=== PATIENT | male | born 1985 | race African-American/Black ===

== ENCOUNTER 2017-08-24 22:19 | Observation (INO) | payer MEDICARE ==
[2017-08-24] MEDS ORDERED: HYDROMORPHONE HCL INJ/PF 2 MG/ML AMPULE IV PRN (23:48)
--- NOTE | 2017-08-25 00:18 | ER Document Report ---
ED General - General Chief Complaint: Sickle Cell Crisis Stated Complaint: PAIN Time Seen by Provider: 08/24/17 23:48 Notes: Patient is a 32-year-old male with a past medical history of sickle cell anemia hemoglobin SC who presents with an acute pain crisis. He describes pain as being in his bilateral hips and thighs bilaterally as well as into his low back. He reports that this is very typical for sickle cell pain crisis. He states the pancreas started earlier today and has been a constant, throbbing, moderate to severe pain. He took oxycodone 15 mg tablet at home without any relief of his pain. He denies any associated fever, nausea, vomiting, shortness of breath or chest pain. He denies any history of acute chest syndrome in the past. He has not seen his policy and planning manager regarding today's concerns although he states he did inform him that he was coming to the hospital today. TRAVEL OUTSIDE OF THE [place] IN LAST 30 DAYS: No - Related Data Allergies/Adverse Reactions: No Known Allergies Allergy (Unverified 08/25/17 00:17) Past Medical History - General Information source: Patient - Social History Smoking Status: Never Smoker Chew tobacco use (# tins/day): No Frequency of alcohol use: None Drug Abuse: None Lives with: Friend Family History: Reviewed & Not Pertinent Patient has suicidal ideation: No Patient has homicidal ideation: No Renal/ Medical History: Denies: Hx Peritoneal Dialysis Past Surgical History: Reports: Hx Cholecystectomy Review of Systems - Review of Systems Notes: Constitutional: Negative for fever. HENT: Negative for sore throat. Eyes: Negative for visual changes. Cardiovascular: Negative for chest pain. Respiratory: Negative for shortness of breath. Gastrointestinal: Negative for abdominal pain, vomiting or diarrhea. Genitourinary: Negative for dysuria. Musculoskeletal: Positive for back and hip pain Skin: Negative for rash. Neurological: Negative for headaches, weakness or numbness. 10 point ROS negative except as marked above and in HPI. Physical Exam - Vital signs Vitals: Temp Pulse Resp BP Pulse Ox 98.5 F 98 18 145/93 H 100 08/24/17 22:26 08/24/17 22:26 08/24/17 22:26 08/24/17 22:26 08/24/17 22:26 Interpretation: Normal Notes: PHYSICAL EXAMINATION: GENERAL: Well-appearing, well-nourished and in no acute distress. HEAD: Atraumatic, normocephalic. EYES: Pupils equal round and reactive to light, extraocular movements intact, sclera anicteric, conjunctiva are normal. ENT: nares patent, oropharynx clear without exudates. Moist mucous membranes. NECK: Normal range of motion, supple without lymphadenopathy LUNGS: Breath sounds clear to auscultation bilaterally and equal. No wheezes rales or rhonchi. HEART: Regular rate and rhythm without murmurs ABDOMEN: Soft, nontender, normoactive bowel sounds. No guarding, no rebound. No masses appreciated. EXTREMITIES: Normal range of motion, no pitting or edema. No cyanosis. NEUROLOGICAL: No focal neurological deficits. Moves all extremities spontaneously and on command. PSYCH: Normal mood, normal affect. SKIN: Warm, Dry, normal turgor, no rashes or lesions noted. Course - Re-evaluation Re-evalutation: 08/25/17 00:17 Presentation is most consistent with an uncomplicated sickle cell pain crisis. Patient has no evidence of an aplastic crisis on labs. Clinical history and vitals are not consistent with acute chest syndrome and patient has no history of this diagnosis. Vitals have remained within normal limits here in the emergency department. I have been unable to adequately control the patient's pain with IV analgesia and will hospitalize him at his request. - Vital Signs Vital signs: Temp Pulse Resp BP Pulse Ox 98.5 F 91 16 144/91 H 99 08/25/17 02:30 08/25/17 02:30 08/25/17 02:30 08/25/17 02:30 08/25/17 02:30 - Laboratory Result Diagrams: 08/25/17 00:02 08/25/17 00:02 Laboratory results interpreted by me: 08/25/17 00:02 RBC 4.25 L Hgb 12.8 L Hct 36.7 L RDW 15.2 H Seg Neutrophils % 41.8 L Eosinophils % 6.5 H Discharge - Discharge Clinical Impression: Sickle cell pain crisis Condition: Fair Disposition: ADMITTED OBSERVATION Admitting Provider: Peewee Arias Gopal Unit Admitted: Medical Floor Additional Instructions: You were seen today for sickle cell pain crisis. Please follow-up with your policy and planning manager. Returning to the ED if you have worsening pain, fever greater than 100.4, shortness of breath, persistent vomiting, or any other symptoms that are concerning to you.
[2017-08-25] MEDS: HYDROMORPHONE HCL INJ/PF 2 MG/ML AMPULE IV PRN ×6 (00:20→21:07)
[2017-08-25 00:30] LABS: APPEARANCE,URINE CLEAR; BILIRUBIN,URINE NEGATIVE (NEGATIVE); GLUCOSE, URINE NEGATIVE (NEGATIVE); KETONES,URINE NEGATIVE (NEGATIVE); LEUKOCYTE ESTERASE,URINE NEGATIVE (NEGATIVE); NITRITE,URINE NEGATIVE (NEGATIVE); PROTEIN,URINE NEGATIVE (NEGATIVE); URINE SPECIFIC GRAVITY 1.009; UROBILINOGEN,URINE NEGATIVE mg/dL (<2.0)
[2017-08-25 00:35] LABS: ABSOLUTE BASOPHILS # (AUTO) 0.2 10^3/uL (0.0-0.2); ABSOLUTE EOSINOPHILS # (AUTO) 0.6 10^3/uL (0.0-0.6); ABSOLUTE LYMPHOCYTES (AUTO) 3.8 10^3/uL (0.5-4.7); ABSOLUTE MONOCYTES (AUTO) 1.1 10^3/uL (0.1-1.4); ABSOLUTE NEUT (AUTO) 4.1 10^3/uL (1.7-8.2); BASOPHILS % (AUTO) 1.7 % (0-2); EOSINOPHILS % (AUTO) 6.5 % (0-6); HEMATOCRIT 36.7 % (37.9-51.0); HEMOGLOBIN 12.8 g/dL (13.5-17.0); HGB HCT DIFFERENCE 1.7; LYMPHOCYTES % (AUTO) 38.9 % (13-45); MEAN CORPUSCULAR HEMOGLOBIN 30.2 pg (27.0-33.4); MEAN CORPUSCULAR VOLUME 86 fl (80-97); MONOCYTES % (AUTO) 11.1 % (3-13); RED BLOOD COUNT 4.25 10^6/uL (4.35-5.55); RED CELL DISTRIBUTION WIDTH 15.2 % (11.5-14.0); SEGMENTED NEUTROPHILS % (AUTO) 41.8 % (42-78); WHITE BLOOD COUNT 9.9 10^3/uL (4.0-10.5)
[2017-08-25 00:47] LABS: ANION GAP 9 (5-19); BLOOD UREA NITROGEN 9 mg/dL (7-20); CALCIUM 9.8 mg/dL (8.4-10.2); CARBON DIOXIDE 27 mmol/L (22-30); CHLORIDE 107 mmol/L (98-107); CREATININE RESULT 0.93 mg/dL (0.52-1.25); GLUCOSE 86 mg/dL (75-110); POTASSIUM 4.2 mmol/L (3.6-5.0); SODIUM 143.3 mmol/L (137-145)
[2017-08-25] MEDS ORDERED: ONDANSETRON HCL INJ/PF 4 MG/2 ML SDV IV ONE (00:52)
[2017-08-25] MEDS ORDERED: DIPHENHYDRAMINE HCL 50 MG/ML VIAL IV ONE ×2 (00:53→03:10)
[2017-08-25] MEDS ORDERED: HYDROMORPHONE HCL INJ/PF 2 MG/ML AMPULE IV ONE (03:10)
[2017-08-25] MEDS ORDERED: PROMETHAZINE HCL INJ 25 MG/1 ML VIAL IV ONE (03:10)
[2017-08-25] MEDS ORDERED: IPRATROPIUM/ALBUTEROL 0.5-2.5 MG/3 ML AMPUL NEB PRN (04:10)
[2017-08-25] MEDS ORDERED: ACETAMINOPHEN 325 MG TABLET PO PRN (04:10)
[2017-08-25] MEDS ORDERED: ONDANSETRON HCL INJ/PF 4 MG/2 ML SDV IV PRN (04:10)
[2017-08-25] MEDS ORDERED: MAG HYDROX/AL HYDROX/SIMETH SUSP 30 ML UDCUP PO PRN (04:10)
[2017-08-25] MEDS ORDERED: KETOROLAC TROMETHAMINE INJ/PF 30 MG/1 ML SDV IV PRN (04:13)
[2017-08-25] MEDS ORDERED: HYDROMORPHONE HCL INJ/PF 2 MG/ML AMPULE IV PRN ×2 (04:13→16:03)
[2017-08-25 04:51] LABS: URINE BARBITURATES SCREEN NEGATIVE; URINE METHADONE SCREEN NEGATIVE; URINE OPIATES LOW NEGATIVE; URINE PHENCYCLIDINE SCREEN NEGATIVE
[2017-08-25 06:07] LABS: ABSOLUTE BASOPHILS # (AUTO) 0.2 10^3/uL (0.0-0.2); ABSOLUTE EOSINOPHILS # (AUTO) 0.5 10^3/uL (0.0-0.6); ABSOLUTE LYMPHOCYTES (AUTO) 3.6 10^3/uL (0.5-4.7); ABSOLUTE MONOCYTES (AUTO) 0.9 10^3/uL (0.1-1.4); ABSOLUTE NEUT (AUTO) 3.3 10^3/uL (1.7-8.2); BASOPHILS % (AUTO) 1.9 % (0-2); EOSINOPHILS % (AUTO) 5.7 % (0-6); HEMATOCRIT 31.6 % (37.9-51.0); HEMOGLOBIN 11.2 g/dL (13.5-17.0); LYMPHOCYTES % (AUTO) 42.9 % (13-45); MEAN CORPUSCULAR HEMOGLOBIN 30.7 pg (27.0-33.4); MEAN CORPUSCULAR HGB CONC 35.4 g/dL (32.0-36.0); MEAN CORPUSCULAR VOLUME 87 fl (80-97); MONOCYTES % (AUTO) 10.7 % (3-13); RED BLOOD COUNT 3.64 10^6/uL (4.35-5.55); RED CELL DISTRIBUTION WIDTH 15.2 % (11.5-14.0); SEGMENTED NEUTROPHILS % (AUTO) 38.8 % (42-78); WHITE BLOOD COUNT 8.4 10^3/uL (4.0-10.5)
[2017-08-25 06:28] LABS: ASPARTATE AMINO TRANSFERASE 12 U/L (17-59); BILIRUBIN,DIRECT 0.2 mg/dL (0.0-0.4); BILIRUBIN,TOTAL 2.3 mg/dL (0.2-1.3); BLOOD UREA NITROGEN 7 mg/dL (7-20)
[2017-08-25 06:40] LABS: ALANINE AMINOTRANSFERASE 18 U/L (21-72); ALKALINE PHOSPHATASE 43 U/L (38-126); ANION GAP 8 (5-19); CALCIUM 7.6 mg/dL (8.4-10.2); CARBON DIOXIDE 23 mmol/L (22-30); CHLORIDE 113 mmol/L (98-107); CREATININE RESULT 0.77 mg/dL (0.52-1.25); GLUCOSE 73 mg/dL (75-110); SODIUM 143.9 mmol/L (137-145); TOTAL PROTEIN 5.6 g/dL (6.3-8.2)
[2017-08-25 06:41] LABS: POTASSIUM 3.2 mmol/L (3.6-5.0)
[2017-08-25] MEDS: PROMETHAZINE HCL 25 MG TABLET PO PRN ×2 (06:51→14:48)
[2017-08-25] MEDS: HEPARIN SOD (PORCINE) 5,000 UNIT/ML 1 ML SYRINGE SUBCUT SCH ×3 (06:51→21:07)
[2017-08-25] MEDS: NORMAL SALINE 1000 ML 1,000 ML IV SCH ×3 (06:51→14:48)
--- NOTE | 2017-08-25 07:27 | PDOC H&P ---
History of Present Illness Admission Date/PCP: 08/25/17 04:19 REGGIE DOMINIQUE MD Patient complains of: Sickle cell pain crisis History of Present Illness: HEATHER QUIJANO is a 32 year old male with a past medical history of sickle cell trait. Presents with 24 hours of hip and leg pain resembling previous sickle cell pain crisis. He denies fever chills nausea vomiting, he admits cold exposure triggering his crisis. Denies recent change in medicine and is otherwise felt well. In the emergency room he has an unremarkable workup and receives empiric management with IV fluid challenge and Dilaudid. He is referred to the hospitalist for admission Past Medical History Medical History: None Hematology: Reports: Other - Sickle cell trait Past Surgical History Past Surgical History: Reports: Cholecystectomy, Other - Port placement Social History Information Source: Patient Lives with: Friend Smoking Status: Never Smoker Drugs: None - Advance Directive Resuscitation Status: Full Code Family History Family History: CAD, Other - Sickle cell Parental Family History Reviewed: Yes Children Family History Reviewed: Yes Sibling(s) Family History Reviewed.: Yes Medication/Allergy Allergies/Adverse Reactions: No Known Allergies Allergy (Unverified 08/25/17 00:17) Review of Systems Constitutional: ABSENT: chills, fever(s), headache(s), weight gain, weight loss Eyes: ABSENT: visual disturbances Ears: ABSENT: hearing changes Cardiovascular: ABSENT: chest pain, dyspnea on exertion, edema, orthropnea, palpitations Respiratory: ABSENT: cough, hemoptysis Gastrointestinal: ABSENT: abdominal pain, constipation, diarrhea, hematemesis, hematochezia, nausea, vomiting Genitourinary: ABSENT: dysuria, hematuria Musculoskeletal: ABSENT: joint swelling Integumentary: ABSENT: rash, wounds Neurological: ABSENT: abnormal gait, abnormal speech, confusion, dizziness, focal weakness, syncope Psychiatric: ABSENT: anxiety, depression, homidical ideation, suicidal ideation Endocrine: ABSENT: cold intolerance, heat intolerance, polydipsia, polyuria Hematologic/Lymphatic: ABSENT: easy bleeding, easy bruising Physical Exam Vital Signs: Temp Pulse Resp BP Pulse Ox 98.4 F 85 16 156/100 H 100 08/25/17 06:25 08/25/17 06:25 08/25/17 06:25 08/25/17 06:25 08/25/17 06:25 Intake & Output 08/23/17 08/24/1717 11:59 11:59 11:59 Weight 61.7 kg General appearance: PRESENT: no acute distress, well-developed, well-nourished Head exam: PRESENT: atraumatic, normocephalic Eye exam: PRESENT: conjunctiva pink, EOMI, PERRLA. ABSENT: scleral icterus Ear exam: PRESENT: normal external ear exam Mouth exam: PRESENT: moist, tongue midline Neck exam: ABSENT: carotid bruit, JVD, lymphadenopathy, thyromegaly Respiratory exam: PRESENT: clear to auscultation gil. ABSENT: rales, rhonchi, wheezes Cardiovascular exam: PRESENT: RRR. ABSENT: diastolic murmur, rubs, systolic murmur Pulses: PRESENT: normal dorsalis pedis pul Vascular exam: PRESENT: normal capillary refill GI/Abdominal exam: PRESENT: normal bowel sounds, soft. ABSENT: distended, guarding, mass, organolmegaly, rebound, tenderness Rectal exam: PRESENT: deferred Extremities exam: PRESENT: full ROM. ABSENT: calf tenderness, clubbing, pedal edema Neurological exam: PRESENT: alert, awake, oriented to person, oriented to place , oriented to time, oriented to situation, CN II-XII grossly intact. ABSENT: motor sensory deficit Psychiatric exam: PRESENT: appropriate affect, normal mood. ABSENT: homicidal ideation, suicidal ideation Skin exam: PRESENT: dry, intact, warm. ABSENT: cyanosis, rash Results Laboratory Results: 08/25/17 05:55 08/25/17 05:55 08/25/17 08/25/17 05:55 05:55 WBC 8.4 RBC 3.64 L Hgb 11.2 L Hct 31.6 L MCV 87 MCH 30.7 MCHC 35.4 RDW 15.2 H Plt Count 359 Seg Neutrophils % 38.8 L Lymphocytes % 42.9 Monocytes % 10.7 Eosinophils % 5.7 Basophils % 1.9 Absolute Neutrophils 3.3 Absolute Lymphocytes 3.6 Absolute Monocytes 0.9 Absolute Eosinophils 0.5 Absolute Basophils 0.2 Sodium 143.9 Potassium 3.2 L D Chloride 113 H Carbon Dioxide 23 Anion Gap 8 BUN 7 Creatinine 0.77 Est GFR ( Amer) > 60 Est GFR (Non-Af Amer) > 60 Glucose 73 L Calcium 7.6 L Total Bilirubin 2.3 H AST 12 L ALT 18 L Alkaline Phosphatase 43 Total Protein 5.6 L Albumin 3.0 L Assessment & Plan - Diagnosis (1) Sickle cell pain crisis Is this a current diagnosis for this admission?: Yes Plan: No biochemical evidence for hemolysis, ischemia or increased reticulocytosis. Observation on the medical floor, education, symptomatic management, IV fluid challenge. Follow-up CBC. - Time Time Spent: 30 to 50 Minutes
[2017-08-25] MEDS ORDERED: POTASSIUM CHLORIDE 10 MEQ TABLET.SA PO ONE (08:30)
[2017-08-25] MEDS ORDERED: DIPHENHYDRAMINE HCL 50 MG/ML VIAL IV PRN (09:49)
--- NOTE | 2017-08-25 16:13 | PDOC PROGRESS REPORT ---
Subjective Progress Note for:: 08/25/17 Subjective:: Pt is seen on morning rounds as a follow up for sickle cell pain. He is found resting in bed comfortably on room air. He reports that his pain is well controlled at the moment, but requests that he be ordered Benadryl and promethazine to take as adjuncts to the pain medication. He reports that his outpatient pain medication regimen has been decreased recently and that he believes that this is what has exacerbated his sickle cell pain. He states that he is currently prescribed oxycodone 15 mg 1- 2 tabs 3 times daily as needed for pain. He reports that his last sickle cell crisis was in June and that otherwise he has been in his usual state of health. Currently, he complains of bilateral lower back pain and right hip pain that is worsened by ambulation. Reason For Visit: SICKLE CELL PAIN CRISIS Physical Exam Vital Signs: Temp Pulse Resp BP Pulse Ox 97.8 F 97 16 137/98 H 100 08/25/17 12:00 08/25/17 12:00 08/25/17 12:00 08/25/17 12:00 08/25/17 12:00 Intake & Output 08/24/17 08/25/17 08/26/17 06:59 06:59 06:59 Weight 61.7 kg General appearance: PRESENT: no acute distress, well-developed, well-nourished Head exam: PRESENT: atraumatic, normocephalic Eye exam: PRESENT: conjunctiva pink, EOMI, PERRLA. ABSENT: scleral icterus Ear exam: PRESENT: normal external ear exam Mouth exam: PRESENT: moist, tongue midline Neck exam: ABSENT: carotid bruit, JVD, lymphadenopathy, thyromegaly Respiratory exam: PRESENT: clear to auscultation gil. ABSENT: rales, rhonchi, wheezes Cardiovascular exam: PRESENT: RRR. ABSENT: diastolic murmur, rubs, systolic murmur Pulses: PRESENT: normal dorsalis pedis pul Vascular exam: PRESENT: normal capillary refill GI/Abdominal exam: PRESENT: normal bowel sounds, soft. ABSENT: distended, guarding, mass, organolmegaly, rebound, tenderness Rectal exam: PRESENT: deferred Extremities exam: PRESENT: full ROM. ABSENT: calf tenderness, clubbing, pedal edema Neurological exam: PRESENT: alert, awake, oriented to person, oriented to place , oriented to time, oriented to situation, CN II-XII grossly intact. ABSENT: motor sensory deficit Psychiatric exam: PRESENT: appropriate affect, normal mood. ABSENT: homicidal ideation, suicidal ideation Skin exam: PRESENT: dry, intact, warm. ABSENT: cyanosis, rash Results Laboratory Results: 08/25/17 05:55 08/25/17 05:55 08/25/17 08/25/17 05:55 05:55 WBC 8.4 RBC 3.64 L Hgb 11.2 L Hct 31.6 L MCV 87 MCH 30.7 MCHC 35.4 RDW 15.2 H Plt Count 359 Seg Neutrophils % 38.8 L Lymphocytes % 42.9 Monocytes % 10.7 Eosinophils % 5.7 Basophils % 1.9 Absolute Neutrophils 3.3 Absolute Lymphocytes 3.6 Absolute Monocytes 0.9 Absolute Eosinophils 0.5 Absolute Basophils 0.2 Sodium 143.9 Potassium 3.2 L D Chloride 113 H Carbon Dioxide 23 Anion Gap 8 BUN 7 Creatinine 0.77 Est GFR ( Amer) > 60 Est GFR (Non-Af Amer) > 60 Glucose 73 L Calcium 7.6 L Total Bilirubin 2.3 H AST 12 L ALT 18 L Alkaline Phosphatase 43 Total Protein 5.6 L Albumin 3.0 L Assessment & Plan - Diagnosis (1) Sickle cell pain crisis Is this a current diagnosis for this admission?: Yes Plan: No biochemical evidence for hemolysis, ischemia or increased reticulocytosis. He has been admitted with IV fluid support and symptomatic management with narcotic pain medications and antiemetics. Will resume the patient home medication; oxycodone 15 mg TID. Will decrease dose/frequency of Dilaudid to q6 hrs prn severe/breakthrough pain. Pt additionally has tylenol and toradol available as needed for pain. Benadryl is provided q6 prn itching. Promethazine has been discontinued as the pt denies ongoing nausea/vomiting. As needed Zofran remains. (2) Chronic pain Plan: Review of the [place] Controlled Substance database reveals that he has recently been prescribed Morphine 15 mg 1 tab daily #30 and Oxycodone 15 mg 1 tab TID. Will resume his home medication:Oxycodone 15 mg TID. Remaining pain management plan as above. - Time Time Spent with patient: 15-24 minutes Anticipated discharge: Home Within: within 24 hours
[2017-08-25] MEDS ORDERED: OXYCODONE HCL IR 5 MG TABLET PO PRN (16:16)
[2017-08-25] MEDS: DIPHENHYDRAMINE HCL 25 MG CAPSULE PO PRN (21:06)
[2017-08-26] MEDS: HYDROMORPHONE HCL INJ/PF 2 MG/ML AMPULE IV PRN (02:59)
[2017-08-26] MEDS: DIPHENHYDRAMINE HCL 25 MG CAPSULE PO PRN (02:59)
[2017-08-26] MEDS: HEPARIN SOD (PORCINE) 5,000 UNIT/ML 1 ML SYRINGE SUBCUT SCH (05:54)
[2017-08-26 06:21] LABS: ABSOLUTE BASOPHILS # (AUTO) 0.2 10^3/uL (0.0-0.2); ABSOLUTE EOSINOPHILS # (AUTO) 1.1 10^3/uL (0.0-0.6); ABSOLUTE LYMPHOCYTES (AUTO) 4.7 10^3/uL (0.5-4.7); ABSOLUTE MONOCYTES (AUTO) 0.9 10^3/uL (0.1-1.4); ABSOLUTE NEUT (AUTO) 3.9 10^3/uL (1.7-8.2); BASOPHILS % (AUTO) 1.6 % (0-2); EOSINOPHILS % (AUTO) 10.2 % (0-6); HEMATOCRIT 36.7 % (37.9-51.0); HEMOGLOBIN 12.9 g/dL (13.5-17.0); LYMPHOCYTES % (AUTO) 43.1 % (13-45); MEAN CORPUSCULAR HEMOGLOBIN 30.1 pg (27.0-33.4); MEAN CORPUSCULAR HGB CONC 35.2 g/dL (32.0-36.0); MEAN CORPUSCULAR VOLUME 86 fl (80-97); MONOCYTES % (AUTO) 8.7 % (3-13); RED BLOOD COUNT 4.29 10^6/uL (4.35-5.55); SEGMENTED NEUTROPHILS % (AUTO) 36.4 % (42-78); WHITE BLOOD COUNT 10.8 10^3/uL (4.0-10.5)
[2017-08-26] MEDS ORDERED: KETOROLAC TROMETHAMINE INJ/PF 30 MG/1 ML SDV IV ONE (06:30)
[2017-08-26 06:48] LABS: ALANINE AMINOTRANSFERASE 21 U/L (21-72); ALBUMIN 3.8 g/dL (3.5-5.0); ALKALINE PHOSPHATASE 56 U/L (38-126); ANION GAP 9 (5-19); ASPARTATE AMINO TRANSFERASE 16 U/L (17-59); BILIRUBIN,DIRECT 0.3 mg/dL (0.0-0.4); BLOOD UREA NITROGEN 10 mg/dL (7-20); CALCIUM 9.1 mg/dL (8.4-10.2); CARBON DIOXIDE 30 mmol/L (22-30); CHLORIDE 100 mmol/L (98-107); CREATININE RESULT 0.96 mg/dL (0.52-1.25); GLUCOSE 98 mg/dL (75-110); POTASSIUM 4.1 mmol/L (3.6-5.0); TOTAL PROTEIN 6.7 g/dL (6.3-8.2)
[2017-08-26 07:09] LABS: ANISOCYTOSIS 1+; POIKILOCYTOSIS 1+; POLYCHROMASIA SLIGHT; SCHISTOCYTES SLIGHT; TARGET CELLS 1+; TEAR DROP CELLS SLIGHT
[2017-08-26] MEDS ORDERED: OXYCODONE HCL IR 5 MG TABLET PO PRN (09:34)
[2017-08-26 10:37] VITALS: BP 131/91
[2017-08-26] MEDS ORDERED: ACETAMINOPHEN 325 MG TABLET PO PRN (11:00)
[2017-08-26] MEDS ORDERED: MAG HYDROX/AL HYDROX/SIMETH SUSP 30 ML UDCUP PO PRN (11:00)
[2017-08-26] MEDS ORDERED: IPRATROPIUM/ALBUTEROL 0.5-2.5 MG/3 ML AMPUL NEB PRN (11:00)
[2017-08-26] MEDS ORDERED: ONDANSETRON HCL INJ/PF 4 MG/2 ML SDV IV PRN (11:00)
--- NOTE | 2017-08-26 12:36 | PDOC DISCHARGE SUMMARY ---
General - Admit/Disc Date/PCP Admission Date/Primary Care Provider: 08/25/17 04:19 Discharge Date: 08/26/17 - Discharge Diagnosis (1) Sickle cell pain crisis Is this a current diagnosis for this admission?: Yes (2) Chronic pain Is this a current diagnosis for this admission?: Yes - Additional Information Resuscitation Status: Full Code Discharge Diet: As Tolerated, Other (Comments) Discharge Activity: Activity As Tolerated, Balance Activity w/Rest, Slowly Increase Activity Prescriptions: Oxycodone HCl [Oxy-Ir 5 mg Tablet] 5 mg PO Q4HP PRN #20 tablet PRN Reason: Home Medications: Folic Acid [Folvite 1 mg Tablet] 1 mg PO DAILY 08/25/17 Hydroxyurea [Hydrea 500 mg Capsule] 1,000 mg PO DAILY 08/25/17 Oxycodone HCl 15 mg PO Q8HP PRN 08/25/17 Promethazine HCl [Phenergan 25 mg Tablet] 25 mg PO Q6HP PRN 08/25/17 Acetaminophen [Tylenol 325 mg Tablet] 650 mg PO Q4HP PRN tablet 08/26/17 Diphenhydramine HCl [Benadryl 25 mg Capsule] 25 mg PO Q6HP PRN capsule Oxycodone HCl [Oxy-Ir 5 mg Tablet] 5 mg PO Q4HP PRN #20 tablet 08/26/17 History of Present Illness History of Present Illness: Per H&P by Dr. Herron: HEATHER QUIJANO is a 32 year old male with a past medical history of sickle cell trait. He presents with 24 hours of hip and leg pain resembling previous sickle cell pain crisis. He denies fever chills nausea vomiting, he admits cold exposure triggering his crisis. Denies recent change in medicine and otherwise felt well. In the emergency room he has an unremarkable workup and received empiric management with IV fluid challenge and Dilaudid. He is referred to the hospitalist for admission Hospital Course Hospital Course: The patient was admitted for complaint of pain to hip and leg resembling previous sickle cell pain crisis. Evaluation did not reveal biochemocal evidence for hemolysis, ischemia, anemia, or increased reticulocytosis. The patient was symptomatically managed with IV fluids, IV Dilaudid, Toradol, Benadryl and Phenergan. The patient stated that his pain was well-controlled with this regimen. He did admit to having run out of his chronic pain medications a few days prior to admission. Review of the [place] Controlled Substance Database confirmed that the patient received Oxycodone 15 mg tabs #150 on 08/04/17 and Morphine 15 mg tabs #30 on 07/31/17. The patient was informed that he was stable for discharge and that we could not replace his missing chronic pain medications. He was instructed to follow up with his pain management or primary care provider. The patient expressed understanding and consented to be discharged. Physical Exam Vital Signs: Temp Pulse Resp BP Pulse Ox 98.4 F 89 16 131/91 H 99 08/26/17 10:35 08/26/17 10:35 08/26/17 10:35 08/26/17 10:35 08/26/17 10:35 Intake & Output 08/25/17 08/26/17 08/27/17 06:59 06:59 06:59 Intake Total 1530 Output Total 600 Balance 930 Weight 61.7 kg 65.8 kg General appearance: PRESENT: no acute distress, well-developed, well-nourished Head exam: PRESENT: atraumatic, normocephalic Eye exam: PRESENT: conjunctiva pink, EOMI, PERRLA. ABSENT: scleral icterus Ear exam: PRESENT: normal external ear exam Mouth exam: PRESENT: moist, tongue midline Neck exam: ABSENT: carotid bruit, JVD, lymphadenopathy, thyromegaly Respiratory exam: PRESENT: clear to auscultation gil. ABSENT: rales, rhonchi, wheezes Cardiovascular exam: PRESENT: RRR. ABSENT: diastolic murmur, rubs, systolic murmur Pulses: PRESENT: normal dorsalis pedis pul Vascular exam: PRESENT: normal capillary refill GI/Abdominal exam: PRESENT: normal bowel sounds, soft. ABSENT: distended, guarding, mass, organolmegaly, rebound, tenderness Rectal exam: PRESENT: deferred Extremities exam: PRESENT: full ROM. ABSENT: calf tenderness, clubbing, pedal edema Neurological exam: PRESENT: alert, awake, oriented to person, oriented to place , oriented to time, oriented to situation, CN II-XII grossly intact. ABSENT: motor sensory deficit Psychiatric exam: PRESENT: appropriate affect, normal mood. ABSENT: homicidal ideation, suicidal ideation Skin exam: PRESENT: dry, intact, warm. ABSENT: cyanosis, rash Results Laboratory Results: 08/26/17 05:58 08/26/17 05:58 08/26/17 08/26/17 05:58 05:58 WBC 10.8 H RBC 4.29 L Hgb 12.9 L Hct 36.7 L MCV 86 MCH 30.1 MCHC 35.2 RDW 15.0 H Plt Count 420 Seg Neutrophils % 36.4 L Lymphocytes % 43.1 Monocytes % 8.7 Eosinophils % 10.2 H Basophils % 1.6 Absolute Neutrophils 3.9 Absolute Lymphocytes 4.7 Absolute Monocytes 0.9 Absolute Eosinophils 1.1 H Absolute Basophils 0.2 Sodium 139.0 Potassium 4.1 Chloride 100 Carbon Dioxide 30 Anion Gap 9 BUN 10 Creatinine 0.96 Est GFR ( Amer) > 60 Est GFR (Non-Af Amer) > 60 Glucose 98 Calcium 9.1 Total Bilirubin 3.0 H AST 16 L ALT 21 Alkaline Phosphatase 56 Total Protein 6.7 Albumin 3.8 Qualifiers PATEINT BEING DISCHARGED WITH ANY OF THE FOLLOWING DIAGNOSIS?: No
== END 2017-08-26 13:06 | disposition home or self-care (01) ==
LOC: ER 22:19 → EH 08-25 04:19 → 5 08-25 06:21
PROVIDERS: ADMIT Internal Medicine; ATTEND Internal Medicine
DX: D57.219 Sickle-cell/Hb-C disease with crisis, unspecified (principal); G89.29 Other chronic pain; Z90.49 Acquired absence of other specified parts of digestive tract; Z83.2 Family history of diseases of the blood and blood-forming organs and certain disorders involving the immune mechanism
CPT/HCPCS: 96376; 99285; 96374; 96375; 85025 ×2; 85045; 80048; 80053 ×2; 81001; 80307; G0378 ×3; J1644 ×2; A9270 ×5; J1200; J1885; J1170 ×2; J2550; J2405; J7030; 36415

== ENCOUNTER 2017-12-10 16:54 | Emergency (ER) | payer MEDICARE ==
[2017-12-10] MEDS ORDERED: FENTANYL CITRATE INJ/PF 100 MCG/2 ML AMPUL IV ONE (17:37)
[2017-12-10] MEDS ORDERED: NORMAL SALINE 1000 ML 1,000 ML IV ONE (17:37)
--- NOTE | 2017-12-10 17:41 | ER Document Report ---
ED Medical Screen (RME) - General Chief Complaint: Sickle Cell Crisis Stated Complaint: LEG PAIN Time Seen by Provider: 12/10/17 17:36 Notes: RME DISCLOSURE I have seen this patient as part of a Rapid Medical Evaluation and, if applicable, placed any initially appropriate orders. The patient will be seen and fully evaluated, including a full history and physical exam, by a provider ( in Main ED or Fast Track) when a room becomes available. 32-year-old male past medical history hemoglobin SC disease here with complaints of pain to both hips and thighs ongoing for the past 1-2 days. He has been taking his oxycodone with minimal relief. He has not missed any doses of his hydroxyurea or folic acid. He has a pain crisis every month, 1-2 times per month. TRAVEL OUTSIDE OF THE [place] IN LAST 30 DAYS: No - Related Data Allergies/Adverse Reactions: No Known Allergies Allergy (Verified 12/10/17 16:56) Past Medical History - Social History Chew tobacco use (# tins/day): No Frequency of alcohol use: Social Drug Abuse: None Renal/ Medical History: Denies: Hx Peritoneal Dialysis Past Surgical History: Reports: Hx Cholecystectomy, Other - Port placement - Immunizations History of Influenza Vaccine for 06/2017 - 11/2017 Season: Yes Influenza Administration Date for 06/2017 - 11/2017 Season: 06/06/17 Physical Exam - Vital signs Vitals: Temp Pulse Resp BP Pulse Ox 98.2 F 88 16 145/91 H 99 12/10/17 16:58 12/10/17 16:58 12/10/17 16:58 12/10/17 16:58 12/10/17 16:58 Course - Vital Signs Vital signs: Temp Pulse Resp BP Pulse Ox 98.2 F 88 16 145/91 H 99 12/10/17 16:58 12/10/17 16:58 12/10/17 16:58 12/10/17 16:58 12/10/17 16:58
[2017-12-10 18:25] LABS: ABSOLUTE BASOPHILS # (AUTO) 0.1 10^3/uL (0.0-0.2); ABSOLUTE EOSINOPHILS # (AUTO) 0.1 10^3/uL (0.0-0.6); ABSOLUTE LYMPHOCYTES (AUTO) 2.3 10^3/uL (0.5-4.7); ABSOLUTE MONOCYTES (AUTO) 0.9 10^3/uL (0.1-1.4); ABSOLUTE NEUT (AUTO) 7.8 10^3/uL (1.7-8.2); ABSOLUTE RETICS # 0.217 10^6/uL (0.028-0.122); BASOPHILS % (AUTO) 0.6 % (0-2); EOSINOPHILS % (AUTO) 0.7 % (0-6); HEMATOCRIT 37.8 % (37.9-51.0); HEMOGLOBIN 12.9 g/dL (13.5-17.0); LYMPHOCYTES % (AUTO) 20.4 % (13-45); MEAN CORPUSCULAR HGB CONC 34.2 g/dL (32.0-36.0); MEAN CORPUSCULAR VOLUME 85 fl (80-97); MONOCYTES % (AUTO) 7.8 % (3-13); PLATELET COUNT 578 10^3/uL (150-450); RED BLOOD COUNT 4.46 10^6/uL (4.35-5.55); RED CELL DISTRIBUTION WIDTH 18.7 % (11.5-14.0); RETICULOCYTE COUNT (AUTO) 4.85 % (0.66-2.85); SEGMENTED NEUTROPHILS % (AUTO) 70.5 % (42-78); TOTAL CELLS COUNTED % (AUTO) 100 %; WHITE BLOOD COUNT 11.1 10^3/uL (4.0-10.5)
[2017-12-10] MEDS ORDERED: ONDANSETRON HCL INJ/PF 4 MG/2 ML SDV IV ONE (18:28)
[2017-12-10 18:41] LABS: ALANINE AMINOTRANSFERASE 19 U/L (21-72); ALBUMIN 4.3 g/dL (3.5-5.0); ALKALINE PHOSPHATASE 72 U/L (38-126); ANION GAP 10 (5-19); ASPARTATE AMINO TRANSFERASE 15 U/L (17-59); BILIRUBIN,DIRECT 0.2 mg/dL (0.0-0.4); BLOOD UREA NITROGEN 7 mg/dL (7-20); CALCIUM 10.3 mg/dL (8.4-10.2); CARBON DIOXIDE 28 mmol/L (22-30); CHLORIDE 106 mmol/L (98-107); GLUCOSE 94 mg/dL (75-110); POTASSIUM 4.3 mmol/L (3.6-5.0); SODIUM 143.7 mmol/L (137-145); TOTAL PROTEIN 7.4 g/dL (6.3-8.2)
[2017-12-10] MEDS: MORPHINE SULFATE 10 MG/ML INJ IV PRN ×3 (18:43→21:16)
[2017-12-10] MEDS ORDERED: DIPHENHYDRAMINE HCL 50 MG/ML VIAL IV ONE ×2 (19:08→21:16)
--- NOTE | 2017-12-10 19:09 | ER Document Report ---
ED General - General Chief Complaint: Sickle Cell Crisis Stated Complaint: LEG PAIN Time Seen by Provider: 12/10/17 17:36 Notes: Patient is a 32-year-old male with a past medical history of sickle cell anemia with associated chronic pain who presents with acute exacerbation of his baseline chronic sickle cell pain. Describes his pain to the bilateral hips and legs which is typical for his sickle cell crisis. Symptoms started 24 hours ago and have been worsening since that time. He tried home oxycodone without any improvement. Nothing worsens his symptoms. He states this feels identical to his prior sickle cell crises. He denies any associated fever, vomiting, cough or shortness of breath. He has not spoken to his nodulizer regarding today's concerns. TRAVEL OUTSIDE OF THE [place] IN LAST 30 DAYS: No - Related Data Allergies/Adverse Reactions: No Known Allergies Allergy (Verified 12/10/17 16:56) Past Medical History - General Information source: Patient - Social History Smoking Status: Never Smoker Chew tobacco use (# tins/day): No Frequency of alcohol use: Social Drug Abuse: None Lives with: Friend Family History: CAD, Other - Sickle cell Patient has suicidal ideation: No Patient has homicidal ideation: No Renal/ Medical History: Denies: Hx Peritoneal Dialysis Past Surgical History: Reports: Hx Cholecystectomy, Other - Port placement Review of Systems - Review of Systems Notes: Constitutional: Negative for fever. HENT: Negative for sore throat. Eyes: Negative for visual changes. Cardiovascular: Negative for chest pain. Respiratory: Negative for shortness of breath. Gastrointestinal: Negative for abdominal pain, vomiting or diarrhea. Genitourinary: Negative for dysuria. Musculoskeletal: Positive for bilateral hip pain and leg pain Skin: Negative for rash. Neurological: Negative for headaches, weakness or numbness. 10 point ROS negative except as marked above and in HPI. Physical Exam - Vital signs Vitals: Temp Pulse Resp BP Pulse Ox 98.2 F 88 16 145/91 H 99 12/10/17 16:58 12/10/17 16:58 12/10/17 16:58 12/10/17 16:58 12/10/17 16:58 Interpretation: Normal Notes: PHYSICAL EXAMINATION: GENERAL: Well-appearing, well-nourished and in no acute distress. HEAD: Atraumatic, normocephalic. EYES: Pupils equal round and reactive to light, extraocular movements intact, sclera anicteric, conjunctiva are normal. ENT: nares patent, oropharynx clear without exudates. Moist mucous membranes. NECK: Normal range of motion, supple without lymphadenopathy LUNGS: Breath sounds clear to auscultation bilaterally and equal. No wheezes rales or rhonchi. HEART: Regular rate and rhythm without murmurs ABDOMEN: Soft, nontender, normoactive bowel sounds. No guarding, no rebound. No masses appreciated. EXTREMITIES: Normal range of motion, no pitting or edema. No cyanosis. NEUROLOGICAL: No focal neurological deficits. Moves all extremities spontaneously and on command. PSYCH: Normal mood, normal affect. SKIN: Warm, Dry, normal turgor, no rashes or lesions noted. Course - Re-evaluation Re-evalutation: 12/10/17 19:08 Presentation is most consistent with an uncomplicated sickle cell pain crisis. Patient has no evidence of an aplastic crisis on labs. History and vitals are not consistent with acute chest syndrome. Vitals have remained within normal limits here in the emergency department. Patient's pain has been able to be controlled using IV analgesia. The patient is agreeable to discharge home at this time. I recommended that they follow closely with their primary nodulizer. At this time will discharge with return precautions and follow- up recommendations. Verbal discharge instructions given a the bedside and opportunity for questions given. Medication warnings reviewed. Patient is in agreement with this plan and has verbalized understanding of return precautions and the need for primary care follow-up in the next 24-72 hours. - Vital Signs Vital signs: Temp Pulse Resp BP Pulse Ox 98.2 F 88 14 141/87 H 100 12/10/17 16:58 12/10/17 16:58 12/10/17 22:01 12/10/17 22:01 12/10/17 22:01 - Laboratory Result Diagrams: 12/10/17 18:10 12/10/17 18:10 Laboratory results interpreted by me: 12/10/17 12/10/17 18:10 18:10 WBC 11.1 H Hgb 12.9 L Hct 37.8 L RDW 18.7 H Plt Count 578 H Retic Count (auto) 4.85 H Absolute Retic 0.217 H Calcium 10.3 H Total Bilirubin 2.0 H AST 15 L ALT 19 L Discharge - Discharge Clinical Impression: Sickle cell pain crisis Chronic pain Qualifiers: Chronic pain type: other chronic pain Qualified Code(s): G89.29 - Other chronic pain Condition: Good Disposition: HOME, SELF-CARE Additional Instructions: You were seen today for sickle cell pain crisis. Please follow-up with your nodulizer. Returning to the ED if you have worsening pain, fever greater than 100.4, shortness of breath, persistent vomiting, or any other symptoms that are concerning to you. Referrals: REGGIE DOMINIQUE MD [Primary Care Provider] - Follow up as needed
[2017-12-10] MEDS ORDERED: DIPHENHYDRAMINE HCL 50 MG/ML VIAL ONE (21:16)
[2017-12-10 22:27] VITALS: BP 141/87
== END 2017-12-10 22:30 | disposition home or self-care (01) ==
LOC: ER 16:54
DX: D57.00 Hb-SS disease with crisis, unspecified (principal); G89.29 Other chronic pain; M25.552 Pain in left hip; M25.551 Pain in right hip; Z90.49 Acquired absence of other specified parts of digestive tract
CPT/HCPCS: 36591; 96376; 99284; 96361; 96374; 96375; 36415; 85025; 85045; 80053; J1200; J3010; J2270; J2405; J7030